=== PATIENT | female | born 1985 | race Caucasian/White ===

== ENCOUNTER 2024-08-29 10:53 | Outpatient (OUT) | payer BC, SELFPAY ==
--- NOTE | 2024-08-29 11:01 | US_ITS ---
[address] [address] Patient Name: LETICIA AWAN MRN: [id number] date: 1985 Sex: F Assigned Patient Location: US Current Patient Location: US Accession/Order Number: [id number] Exam Date: 08/29/2024 11:02 Report Date: 08/29/2024 23:28 At the request of: JEFF BAL Procedure: US OB anatomy EXAMINATION: US OB anatomy HISTORY: Related Condition In Second Trimester COMPARISON: No relevant comparison available. TECHNIQUE: Transabdominal sonographic examination was performed for obstetrical and evaluation. FINDINGS: Number: 1 Heart Rate: 156.07 bpm Amniotic Fluid Volume: Subjectively normal Placental Location: Posterior with lower margin 3.7 cm from os. Cervix Length: 5.02 cm , closed. ANATOMY: Normal Structures -cerebellum, choroid plexus, cisterna magna, lateral cerebral ventricles, orbits, midline falx, hard palate, four-chamber heart, RVOT, LVOT, stomach, kidneys, bladder, umbilical cord insertion into abdomen, three-vessel cord, cervical spine, thoracic spine, lumbar spine, sacral spine, right upper extremity, left upper extremity, right lower extremity, left lower extremity. SUBOPTIMALLY SEEN: Suspect 5 mm left renal cysts versus dilated pelvis. ABNORMALITIES: None BIOMETRY: BPD: 4.55 cm; 19 weeks 5 days; 14.30 % HC: 17.52 cm; 20 weeks 0 days; 14.80 % AC: 15.17 cm; 20 weeks 3 days; 32.70 % FL: 3.38 cm; 20 weeks 4 days; 37.50 % EFW:352.59 g; 29.50 % FL/AC: 22.29 FL/BPD: 74.30 HC/AC: 1.16 GESTATIONAL AGE: Age by EDC: 20 weeks 5 days Age by current US: 20 weeks 1 day IJEOMA by current US: 2025-01-15 IJEOMA by EDC: 2025-01-11 US/US OB anatomy IMPRESSION: 1. Single live intrauterine with growth detailed above. Electronically authenticated by: MONICA MATTHEWS Date: 08/29/2024 23:28
== END 2024-08-29 10:54 | disposition home or self-care (01) ==
LOC: US 10:56
PROVIDERS: Visit Provider Midwife
DX: O26.92 Pregnancy related conditions, unspecified, second trimester (principal); Z3A.20 20 weeks gestation of pregnancy
CPT/HCPCS: 76805